=== PATIENT | male | born 1980 | race Caucasian/White ===

== ENCOUNTER 2016-08-24 11:34 | Inpatient (IN) | payer BC, OTHER ==
[2016-08-24] MEDS ORDERED: NS 1,000 ML IV ONE (12:00)
[2016-08-24 12:06] LABS: % IMMATURE GRANULYOCYTES 0.6 % (0.0-1.1); ABSOLUTE IMMATURE GRANULOCYTES 0.05 10^3/uL (0.00-0.10); ADD DIFF? NO; ADD MORPH? NO; ADD SCAN? NO; ATYPICAL LYMPHOCYTE FLAG 50 (0-99); FRAGMENT RBC FLAG 0 (0-99); HEMATOCRIT 38.7 % (40.0-51.0); HEMOGLOBIN 13.2 g/dL (13.7-17.5); LEFT SHIFT FLG 0 (0-99); LIPEMIA HEMOLYSIS FLAG 90 (0-99); MEAN CELL HEMOGLOBIN 26.9 pg (27.9-34.1); MEAN CELL HEMOGLOBIN CONCENTR. 34.1 g/dL (32.4-36.7); MEAN CELL VOLUME 78.8 fL (81.5-99.8); MEAN PLATELET VOLUME 9.2 fL (8.7-11.7); PLATELET CLUMPS FLAG 0 (0-99); PLATELET COUNT 399 10^3/uL (150-400); RED BLOOD CELL COUNT 4.91 10^6/uL (4.40-6.38); RED CELL DISTRIBUTION WIDTH 13.8 % (11.5-15.2)
[2016-08-24 12:49] LABS: ANION GAP 14 mEq/L (8-16); CALCIUM 9.9 mg/dL (8.5-10.4); CARBON DIOXIDE 24 mEq/l (22-31); CHLORIDE 104 mEq/L (97-110); CREATININE 0.9 mg/dL (0.7-1.3); GLOMERULAR FILTRATION RATE > 60; GLUCOSE 108 mg/dL (70-100); POTASSIUM 4.4 mEq/L (3.5-5.2); SODIUM 142 mEq/L (134-144)
--- NOTE | 2016-08-24 13:28 | EDPHY ---
H & P Time Seen by Provider: 08/24/16 12:34 HPI/ROS: CHIEF COMPLAINT: Bloody stools HISTORY OF PRESENT ILLNESS: 35-year-old male with a history of ulcerative colitis presents with bloody stools. Onset of bloody stools 5 days ago, associated with abdominal cramping. He was placed on prednisone 40 mg daily 2 days ago and has taken 3 doses of prednisone. Despite prednisone, he continues to have 18-20 bloody stools daily. No associated fever or vomiting. He was diagnosed with ulcerative colitis in March. He has had 4 ulcerative colitis flare ups since then. Most recently he was treated with Remicade IV on 2016. 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 Guevara Smoking Status: Never smoked Physical Exam: General Appearance: Alert, pleasant Eyes: Pupils equal and round, no conjunctival pallor or injection ENT, Mouth: Mucous membranes moist Neck: Normal inspection Respiratory: Lungs are clear to auscultation Cardiovascular: Regular rate and rhythm Gastrointestinal: Abdomen is soft and nontender Neurological: A&O, nonfocal, normal gait Skin: Warm and dry, no rash Extremities: Nontender, no pedal edema Psychiatric: Mood and affect normal Constitutional: Initial Vital Signs Temperature (C) 36.5 C 08/24/16 11:40 Heart Rate 79 08/24/16 11:40 Respiratory Rate 17 08/24/16 11:40 Blood Pressure 140/90 H 08/24/16 11:40 O2 Sat (%) 93 08/24/16 11:40 O2 Delivery Mode Room Air Allergies/Adverse Reactions: No Known Allergies Allergy (Unverified 08/24/16 11:39) Home Medications: Medication Instructions Recorded Prednisone 08/24/16 Remicade Inj 100 mg (*) 08/24/16 Medical Decision Making ED Course/Re-evaluation: This patient presents with multiple episodes of bloody stools. IV saline 1 L given. There is no evidence intra-abdominal infection/abscess. I do not feel that CT scanning is indicated at this point. 1:30 p.m.-I consulted with Dr. Saeid Daly, who suggests IV steroids and admission. Solu-Medrol 125 mg IV given. Patient was informed of this plan and he concurs. The hospitalist service was consulted for admission. Differential Diagnosis: Differential diagnosis includes though it is not limited to appendicitis, cholecystitis, diverticulitis, pyelonephritis, bowel perforation, small bowel obstruction. - Data Points Laboratory Results: Laboratory Results 08/24/16 11:55 08/24/16 11:55 08/24/16 08/24/16 11:55 11:55 WBC 8.83 10^3/uL 10^3/uL (3.80-9.50) RBC 4.91 10^6/uL 10^6/uL (4.40-6.38) Hgb 13.2 g/dL L g/dL (13.7-17.5) Hct 38.7 % L % (40.0-51.0) MCV 78.8 fL L fL (81.5-99.8) MCH 26.9 pg L pg (27.9-34.1) MCHC 34.1 g/dL g/dL (32.4-36.7) RDW 13.8 % % (11.5-15.2) Plt Count 399 10^3/uL 10^3/uL (150-400) MPV 9.2 fL fL (8.7-11.7) Neut % (Auto) 80.5 % H % (39.3-74.2) Lymph % (Auto) 16.2 % % (15.0-45.0) Avery % (Auto) 2.6 % L % (4.5-13.0) Eos % (Auto) 0.0 % L % (0.6-7.6) Baso % (Auto) 0.1 % L % (0.3-1.7) Nucleat RBC Rel Count 0.0 % % (0.0-0.2) Absolute Neuts (auto) 7.11 10^3/uL H 10^3/uL (1.70-6.50) Absolute Lymphs (auto) 1.43 10^3/uL 10^3/uL (1.00-3.00) Absolute Monos (auto) 0.23 10^3/uL L 10^3/uL (0.30-0.80) Absolute Eos (auto) 0.00 10^3/uL L 10^3/uL (0.03-0.40) Absolute Basos (auto) 0.01 10^3/uL L 10^3/uL (0.02-0.10) Absolute Nucleated RBC 0.00 10^3/uL 10^3/uL (0-0.01) Immature Gran % 0.6 % % (0.0-1.1) Immature Gran # 0.05 10^3/uL 10^3/uL (0.00-0.10) Sodium 142 mEq/L mEq/L (134-144) Potassium 4.4 mEq/L mEq/L (3.5-5.2) Chloride 104 mEq/L mEq/L (97-110) Carbon Dioxide 24 mEq/l mEq/l (22-31) Anion Gap 14 mEq/L mEq/L (8-16) BUN 22 mg/dL mg/dL (7-23) Creatinine 0.9 mg/dL mg/dL (0.7-1.3) Estimated GFR > 60 Glucose 108 mg/dL H mg/dL (70-100) Calcium 9.9 mg/dL mg/dL (8.5-10.4) Medications Given: Discontinued Medications Sodium Chloride (Ns) 1,000 mls @ 0 mls/hr IV ONCE ONE PRN Reason: Wide Open Stop: 08/24/16 12:01 Last Admin: 08/24/16 12:02 Dose: 1,000 mls Departure - Departure Disposition: [facility] Inpatient Acute Clinical Impression: Ulcerative colitis Qualifiers: Ulcerative colitis location: unspecified ulcerative colitis location Digestive disease complication type: with rectal bleeding Qualified Code(s): K51.911 - Ulcerative colitis, unspecified with rectal bleeding Condition: Good
[2016-08-24] MEDS ORDERED: methylPREDNISolone SOD SUCC 125 MG/2 ML VIAL IVP ONE (13:34)
[2016-08-24] MEDS ORDERED: TEMAZEPAM 15 MG CAP PO PRN (14:11)
[2016-08-24] MEDS ORDERED: ACETAMINOPHEN 325 MG TAB PO PRN (14:11)
[2016-08-24] MEDS ORDERED: ONDANSETRON 4 MG/2 ML VIAL IVP PRN (14:11)
[2016-08-24] MEDS ORDERED: ONDANSETRON DISINTEGRATING 4 MG TAB PO PRN (14:11)
[2016-08-24] MEDS ORDERED: NS 1,000 ML IV SCH (14:15)
[2016-08-24] MEDS ORDERED: methylPREDNISolone SOD SUCC 125 MG/2 ML VIAL IVP SCH (18:00)
--- NOTE | 2016-08-24 18:17 | PDGENHP ---
History and Physical History and Physical: HISTORY AND PHYSICAL CC:Frequent bloody stools with history of Crohn's disease HISTORY: This patient is here with his 1st admission [facility] [place]. Comes in with worsening symptoms of ulcerative colitis. Patient was diagnosed with ulcerative colitis last year. Since then he has been on a number of treatments including several rounds of steroids, some anti- inflammatories and has now been using Remicade. At this time he comes in having fairly dramatic increase in symptoms over the last few days after worsening symptoms for a couple weeks prior to that. At this point he is having as many as 20 bloody stools per day with mild to moderate discomfort, no fevers, no nausea or vomiting. He has no symptoms of the eyes oral mucosa, joints, or skin. He has been compliant with his Remicade injections. He did start taking some prednisone orally at 40 mg dosing a couple days ago. Symptoms of got worse despite all this. ROS: A comprehensive 10 system review revealed no other significant findings PAST MEDICAL HISTORY: No other significant medical issues FAMILY MEDICAL HISTORY: Colon cancer in a grandparent but no inflammatory bowel disease or other autoimmune disease SOCIAL HISTORY: he has [place] but is and living with his and children here. 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 MEDICATIONS: The patients list has been reconciled by our clinical pharmacist in the EMR. I have reviewed the list and ordered appropriate medicines. 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 Daly from Gastroenterology has been consulted - he may need reassessment of his biologic therapy in the outpatient setting I have reviewed the patient's case in detail with Dr. Elisa mora
--- NOTE | 2016-08-24 19:55 | GCON ---
[f rep st] CONSULTATION GASTROENTEROLOGY INPATIENT CONSULTATION DATE OF CONSULTATION: 08/24/2016 REASON FOR CONSULTATION: I was kindly requested by Dr. Ayesha Mahmood to see the patient in consultation for a chief complaint of ulcerative colitis. HISTORY OF PRESENT ILLNESS: He is a 35-year-old white male with a history of the above. Since moving here recently from [place], he has been followed by my partner, Dr. Joann Guevara. His last office visit was June 30. Prior to leaving [place], he received loading doses of Remicade. These helped greatly. He had his first 8-week maintenance dose of Remicade on August 02. Shortly after the above, he began to have an increase in number of bowel movements, with blood. This has gotten progressively worse, with up to 20 bloody bowel movements per day over the last several days. Because of this, he presented to the Emergency Department, and was admitted to the hospital. In the past, prednisone helped. When in [place], he did require 5 months of prednisone. He has tried Lialda, which caused headaches. He has tried balsalazide, with no benefit. He has not tried Imodium for the above. PAST MEDICAL HISTORY: 1. As above. 2. Otherwise, noncontributory. MEDICATIONS: Outpatient medications include the above. Inpatient medications includes Zofran as needed and normal saline. He has also received 1 dose of Solu-Medrol 125 mg IV x1. ALLERGIES: No known drug allergies. SOCIAL HISTORY: He denies smoking. FAMILY HISTORY: Negative for similar ulcerative colitis. REVIEW OF SYSTEMS: Positive pertinent review of systems as per my HPI. Otherwise, a complete review of systems is negative. PHYSICAL EXAM: CONSTITUTIONAL: Reveals a nontoxic-appearing, pleasant gentleman. SKIN: Warm, dry. HEENT: Eyes: Pupils equal, round, and reactive to light accommodation. Ear, nose, mouth and throat: Oropharynx without masses , moist mucosa. CARDIOVASCULAR: Normal S2, normal PMI. RESPIRATORY: Clear to auscultation and percussion anteriorly. GASTROINTESTINAL: Soft, nontender. NEUROLOGIC: Grossly nonfocal with cranial nerves grossly intact. PSYCHIATRIC : Orientation, insight appropriate. MUSCULOSKELETAL: Strength grossly normal throughout, normal sensation. LABORATORIES: Include hematocrit of 38.7%, platelet count 399,000. Normal basic metabolic panel. Normal outpatient liver function tests. Outpatient ESR 17. ASSESSMENT: Significant flare of his known ulcerative colitis. He had an initial very good response to Remicade, but then less of a response with his first maintenance dose 3 weeks ago. He might be failing Remicade, or may have developed antibody. However, it is certainly possible that Remicade will continue to be helpful for him, but possibly he just needs a higher dose. In terms of long-term maintenance, suspect with his significant flares, including now on Remicade, and past long-term use of prednisone, that he will need additional treatment, such as with an immunomodulator. PLAN: 1. IV Solu-Medrol 30 mg q.12. Suspect this will help greatly. Once doing better, we will transition him to prednisone. 2. We will begin azathioprine 100 mg daily. 3. Will check a C diff toxin, but suspect will be negative. 4. Imodium as needed for diarrhea, or preventively. 5. As an outpatient, when he is due for his next Remicade in early September, would recommend 7.5 mg/kg infusion. 6. Will advance his diet. Thank you for allowing me to help in the management of patient. /[id number]/MODL MTDD
[2016-08-24] MEDS: azaTHIOprine 50 MG TAB PO SCH (20:59)
[2016-08-24] MEDS: methylPREDNISolone SOD SUCC 40 MG/ML VIAL IVP SCH (20:59)
[2016-08-25] MEDS: D5W 1/2 NS W/ 20 KCl/L 1,000 ML IV SCH (05:15)
[2016-08-25 05:48] LABS: % IMMATURE GRANULYOCYTES 0.2 % (0.0-1.1); ABSOLUTE IMMATURE GRANULOCYTES 0.02 10^3/uL (0.00-0.10); ADD DIFF? NO; ADD MORPH? NO; ADD SCAN? NO; ATYPICAL LYMPHOCYTE FLAG 50 (0-99); FRAGMENT RBC FLAG 0 (0-99); HEMATOCRIT 33.7 % (40.0-51.0); HEMOGLOBIN 11.4 g/dL (13.7-17.5); LEFT SHIFT FLG 0 (0-99); LIPEMIA HEMOLYSIS FLAG 90 (0-99); MEAN CELL HEMOGLOBIN 26.7 pg (27.9-34.1); MEAN CELL HEMOGLOBIN CONCENTR. 33.8 g/dL (32.4-36.7); MEAN CELL VOLUME 78.9 fL (81.5-99.8); MEAN PLATELET VOLUME 9.2 fL (8.7-11.7); PLATELET CLUMPS FLAG 0 (0-99); PLATELET COUNT 358 10^3/uL (150-400); RED BLOOD CELL COUNT 4.27 10^6/uL (4.40-6.38); RED CELL DISTRIBUTION WIDTH 13.7 % (11.5-15.2)
[2016-08-25 06:17] LABS: ANION GAP 12 mEq/L (8-16); CALCIUM 8.9 mg/dL (8.5-10.4); CARBON DIOXIDE 23 mEq/l (22-31); CHLORIDE 107 mEq/L (97-110); CREATININE 0.8 mg/dL (0.7-1.3); GLOMERULAR FILTRATION RATE > 60; GLUCOSE 121 mg/dL (70-100); POTASSIUM 4.2 mEq/L (3.5-5.2); SODIUM 142 mEq/L (134-144)
[2016-08-25] MEDS: methylPREDNISolone SOD SUCC 40 MG/ML VIAL IVP SCH ×2 (08:39→21:39)
[2016-08-25] MEDS: azaTHIOprine 50 MG TAB PO SCH (08:39)
--- NOTE | 2016-08-25 14:13 | SOAPPROG ---
SOAP Progress Note Assessment/Plan: Assessment/Plan: UC flare. Still with some activity, with 8 b.m.s/24 hours. Suspect will improve, with more time on IV solumedrol. - continue IV 'roids for today - anthony, CPM 08/25/16 14:12 Subjective: cc: UC flare 8 b.m.s/last 24 hours, with urgency, tenesmus, mucous, blood. Tolerating p.o. Objective: Vital Signs Temp Pulse Resp BP Pulse Ox 36.6 C 75 16 129/70 H 93 08/25/16 11:58 08/25/16 11:58 08/25/16 11:58 08/25/16 11:58 08/25/16 11:58 Laboratory Results 08/25/16 05:30 08/25/16 05:30 08/24/16 08/25/16 08/26/16 05:59 05:59 05:59 Intake Total 1250 Balance 1250 c. diff pending. Physical Exam - Physical Exam General Appearance: WD/WN, alert, no apparent distress EENT: PERRL/EOMI, normal ENT inspection, pharynx normal, TMs normal Neck: non-tender, full range of motion, supple, normal inspection Respiratory: chest non-tender, lungs clear, normal breath sounds Cardiac/Chest: normal peripheral pulses, regular rate, rhythm Peripheral Pulses: 2+: carotid (R), carotid (L), femoral (R), femoral (L), dorsalis-pedis (R), dorsalis-pedis (L) Abdomen: normal bowel sounds, non-tender, soft Male Genitalia: deferred Rectal: deferred Back: Normal inspection Skin: normal color, warm/dry Lymphatic: no adenopathy Extremities: normal range of motion, non-tender, normal inspection, normal capillary refill Neuro/Psych: no motor/sensory deficits, alert, normal mood/affect, oriented x 3 ICD10 Worksheet Patient Problems: Problems Problem Status Onset Ulcerative colitis Acute
--- NOTE | 2016-08-25 17:12 | HOSPPROG ---
Hospitalist Progress Note Assessment/Plan: assessment: 35-year-old male presents with acute ulcerative colitis flare Plan: 1. Ulcerative colitis flare. Acute, evidenced by frequent bloody bowel movements, despite outpatient Remicade - Hgb stable 11.4 - gastroenterology consultation appreciated - the frequency of bowel movements is slowing with the IV Solu-Medrol, the consistency remains bloody - continue additional 24 hours of IV Solu-Medrol, then consider adjusting to oral steroids tomorrow if the consistency begins to be less bloody and frequency remains stable - initiated on azathioprine, as-needed Imodium, the patient will be continued on outpatient Remicade - advance diet as tolerates, low consistency Diet. Low residual Prophylaxis. Low risk, SCDs Code. Full Disposition. Anticipated discharge is 08/26 versus 08/27, pending clinical improvement of above, and safe transition to oral steroids. Subjective: Patient reports reduction frequency of bowel movements, remain blood Objective: Vital Signs Temp Pulse Resp BP Pulse Ox 36.8 C 88 16 127/67 H 93 08/25/16 15:47 08/25/16 15:47 08/25/16 15:47 08/25/16 15:47 08/25/16 15:47 Laboratory Results 08/25/16 05:30 08/25/16 05:30 08/24/16 08/25/16 08/26/16 05:59 05:59 05:59 Intake Total 1250 Balance 1250 - Pending Discharge Pending Discharge Within 48 Hours: Yes Pending Discharge Date: 08/27/16 Pending Discharge Time: 11:00 - Physical Exam Constitutional: no apparent distress, appears nourished, not in pain Cardiovascular: regular rate and rhythym, no murmur, rub, or gallop Respiratory: no respiratory distress, no rales or rhonchi, clear to auscultation Gastrointestinal: normoactive bowel sounds, no palpable masses, tenderness ( very mild to deep palpation), No guarding, No distension Neurologic: AAOx3 Psychiatric: interacting appropriately, not anxious, not encephalopathic, thought process linear ICD10 Worksheet Patient Problems: Problems Problem Status Onset Ulcerative colitis Acute
[2016-08-25] MEDS: LOPERAMIDE HCL 2 MG CAP PO PRN ×2 (21:39→22:52)
[2016-08-26 05:23] LABS: HEMATOCRIT 34.9 % (40.0-51.0); HEMOGLOBIN 11.8 g/dL (13.7-17.5)
[2016-08-26] MEDS: methylPREDNISolone SOD SUCC 40 MG/ML VIAL IVP SCH ×2 (07:52→20:43)
[2016-08-26] MEDS: azaTHIOprine 50 MG TAB PO SCH (07:53)
[2016-08-26] MEDS: LOPERAMIDE HCL 2 MG CAP PO PRN (07:53)
--- NOTE | 2016-08-26 09:28 | SOAPPROG ---
SOAP Progress Note Assessment/Plan: Assessment/Plan: UC flare. Still with about the same activity as yesterday, with 6 b.m.s/24 hours. Much of his description suggests significant activity in the rectum/ left colon (tenesmus, small amounts, blood, etc.). - continue IV 'roids for today - continue azathioprine - unprepped flex sig later, to better assess extent of disease, severity, need for enemas/suppositories, etc. - I will also research whether we can give him a remicade dose here, 24 days after his last. 08/26/16 09:25 Subjective: cc: UC flare Still with bloody bms, about six/16 hours, one larger in volume and loose. Imodium helped, but needed to take two. No rigors, chills, vomiting. Objective: Vital Signs Temp Pulse Resp BP Pulse Ox 36.4 C 71 17 126/88 H 94 08/26/16 08:00 08/26/16 08:00 08/26/16 08:00 08/26/16 08:00 08/26/16 08:00 Laboratory Results 08/26/16 04:37 08/25/16 05:30 08/25/16 08/26/16 08/27/16 05:59 05:59 05:59 Intake Total 1250 750 Balance 1250 750 c. diff negative Physical Exam - Physical Exam General Appearance: WD/WN, alert, no apparent distress EENT: PERRL/EOMI, normal ENT inspection, pharynx normal, TMs normal Neck: non-tender, full range of motion, supple, normal inspection Respiratory: chest non-tender, lungs clear, normal breath sounds Cardiac/Chest: normal peripheral pulses, regular rate, rhythm Peripheral Pulses: 2+: carotid (R), carotid (L), femoral (R), femoral (L), dorsalis-pedis (R), dorsalis-pedis (L) Abdomen: normal bowel sounds, non-tender, soft Male Genitalia: deferred Rectal: deferred Back: Normal inspection Skin: normal color, warm/dry Lymphatic: no adenopathy Extremities: normal range of motion, non-tender, normal inspection, normal capillary refill Neuro/Psych: no motor/sensory deficits, alert, normal mood/affect, oriented x 3 ICD10 Worksheet Patient Problems: Problems Problem Status Onset Ulcerative colitis Acute
--- NOTE | 2016-08-26 10:53 | HOSPPROG ---
Hospitalist Progress Note Assessment/Plan: # UC flare - cont IV steroids, started on imuran; was getting remicade as outpatient - will discuss with Dr Daly # anemia - stable ## chart reviewed high risk with UC flare not really improving Subjective: BMs decreasing in frequency but now about 18 in the last day Objective: Vital Signs Temp Pulse Resp BP Pulse Ox 36.4 C 71 17 126/88 H 94 08/26/16 08:00 08/26/16 08:00 08/26/16 08:00 08/26/16 08:00 08/26/16 08:00 Laboratory Results 08/26/16 04:37 08/25/16 05:30 08/25/16 08/26/16 08/27/16 05:59 05:59 05:59 Intake Total 1250 750 Balance 1250 750 - Physical Exam Constitutional: no apparent distress Cardiovascular: regular rate and rhythym, no murmur, rub, or gallop, systolic murmur Respiratory: no respiratory distress, no rales or rhonchi, clear to auscultation Gastrointestinal: no palpable masses, tenderness (mild, RLQ), other ( hyperactive BS), No guarding, No rebound ICD10 Worksheet Patient Problems: Problems Problem Status Onset Ulcerative colitis Acute
[2016-08-26] MEDS ORDERED: fentaNYL 100 MCG/2 ML INJ ONE ×2 (11:13→11:51)
[2016-08-26] MEDS ORDERED: MIDAZOLAM 2 MG/2 ML VIAL ONE (11:13)
[2016-08-26] MEDS ORDERED: LORazepam 2 MG/ML INJ IVP PRN (12:26)
[2016-08-26] MEDS ORDERED: ACETAMINOPHEN 325 MG TAB PO SCH (13:00)
--- NOTE | 2016-08-26 13:01 | GPN ---
[f rep st] PROCEDURE NOTE DATE OF PROCEDURE: 08/26/2016 PROCEDURE: Unprepped colonoscopy with biopsy. INDICATIONS AND PREPROCEDURE DIAGNOSES: Flare of ulcerative colitis, slow to respond to treatment; unprepped colonoscopy now, to ensure no other cause of his symptoms, and to better quantify the severity and the length of his ulcerative colitis. POSTPROCEDURE DIAGNOSIS: Severe ulcerative colitis (as below). PREMEDICATION: Fentanyl 150 mcg IV, Versed 6 mg IV. COMPLICATIONS: None. FINDINGS: After informed consent was obtained, the patient was placed in the left lateral decubitus position. Video adult colonoscope was placed in the rectum and advanced. Of note, this was an unprepped procedure. I was able to get to 60 cm, however, past the splenic flexure. Then, formed stool was seen, so did not try to go further (especially as now the clinical answer was met). Upon slow withdrawal, very severe ulcerative colitis was seen, throughout the extent of the exam, with erythema, friability, granularity, exudate. Biopsies were performed. IMPRESSION: Very severe active ulcerative colitis. PLAN: 1. Biopsies pending, to rule out other causes, such as viral, etc. (doubt). 2. Will increase his Solu-Medrol to 40 mg IV piggyback q.12. 3. Will give him an additional dose of Remicade 5 mg/kg IV infusion. His last infusion was 24 days ago, and was just 5 mg/kg. Therefore, this will give him a larger dose, which I suspect he needs, and hopefully it will benefit him as did loading doses of Remicade when he was in [place]. 4. Will let him eat. 5. Will decrease his IV fluids somewhat. Once doing better, this can be buff capped. 6. Of note, he is supposed to fly to [place] next Monday. With the above severity, this might not be possible. I have given his , Alysha, a letter stating this. 7. Continue azathioprine 100 mg daily. Thank you for allowing me to help in the management of this patient. /[id number]/MODL MTDD
[2016-08-26] MEDS: D5W 1/2 NS W/ 20 KCl/L 1,000 ML IV SCH (13:28)
[2016-08-27 05:37] LABS: HEMATOCRIT 34.6 % (40.0-51.0); HEMOGLOBIN 11.7 g/dL (13.7-17.5)
[2016-08-27] MEDS: azaTHIOprine 50 MG TAB PO SCH (08:09)
[2016-08-27] MEDS: methylPREDNISolone SOD SUCC 40 MG/ML VIAL IVP SCH ×2 (08:10→21:35)
--- NOTE | 2016-08-27 11:24 | SOAPPROG ---
SOAP Progress Note Assessment/Plan: Assessment: Plan: 08/27/16 11:21 A/P 1. Ulcerative colitis- gipson colitis with diarrhea and blood in stools. Received increased dose of Remicade and on Solumedrol BID. Clinically improving? Will follow. Need to monitor LFTs due to imuran. Will also check ESR and CRP as surrogate marker for disease activity. Continue present medications. Subjective: cc: Follow up on ulcerative colitis flare Improving? Has not had a recent BM since 530am (over 5 hours). Denies any abdominal pain. Objective: Vital Signs Temp Pulse Resp BP Pulse Ox 36.6 C 68 16 126/86 H 93 08/27/16 08:00 08/27/16 08:00 08/27/16 08:00 08/27/16 08:00 08/27/16 08:00 Laboratory Results 08/27/16 04:41 08/25/16 05:30 08/26/16 08/27/16 08/28/16 05:59 05:59 05:59 Intake Total 750 800 Balance 750 800 Physical Exam - Physical Exam General Appearance: alert, no apparent distress EENT: No scleral icterus (R), No scleral icterus (L) Respiratory: lungs clear, normal breath sounds, No crackles, No rales, No rhonchi Cardiac/Chest: regular rate, rhythm, No bradycardia, No tachycardia, No diastolic murmur, No systolic murmur Abdomen: normal bowel sounds, non-tender, soft, No guarding, No rebound Skin: normal color, warm/dry Extremities: non-tender, normal inspection Neuro/Psych: normal mood/affect, oriented x 3, 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
--- NOTE | 2016-08-27 11:51 | HOSPPROG ---
Hospitalist Progress Note Assessment/Plan: # UC flare - s/p flex-sig yesterday with severe disease - solu-medrol increased yesterday - remicade given yesterday # anemia - stable Subjective: no BM for 6 hours Objective: Vital Signs Temp Pulse Resp BP Pulse Ox 36.6 C 68 16 126/86 H 93 08/27/16 08:00 08/27/16 08:00 08/27/16 08:00 08/27/16 08:00 08/27/16 08:00 Laboratory Results 08/27/16 04:41 08/25/16 05:30 08/26/16 08/27/16 08/28/16 05:59 05:59 05:59 Intake Total 750 800 Balance 750 800 op note reviewed - Physical Exam Constitutional: no apparent distress, appears nourished Cardiovascular: regular rate and rhythym, no murmur, rub, or gallop, systolic murmur Respiratory: no respiratory distress, no rales or rhonchi, clear to auscultation Gastrointestinal: normoactive bowel sounds, soft, non-tender abdomen, no palpable masses ICD10 Worksheet Patient Problems: Problems Problem Status Onset Ulcerative colitis Acute
[2016-08-27] MEDS: LOPERAMIDE HCL 2 MG CAP PO PRN ×2 (14:12→21:36)
[2016-08-28 04:55] LABS: HEMATOCRIT 36.6 % (40.0-51.0); HEMOGLOBIN 12.5 g/dL (13.7-17.5)
[2016-08-28] MEDS: azaTHIOprine 50 MG TAB PO SCH (07:54)
[2016-08-28] MEDS: methylPREDNISolone SOD SUCC 40 MG/ML VIAL IVP SCH ×2 (07:54→20:57)
--- NOTE | 2016-08-28 09:50 | HOSPPROG ---
Hospitalist Progress Note Assessment/Plan: # UC flare - s/p flex-sig with severe disease - solu-medrol increased - remicade given 08/26 - slow improvement # anemia - stable Subjective: 6 BMs yesterday Objective: Vital Signs Temp Pulse Resp BP Pulse Ox 36.6 C 90 16 130/77 H 93 08/28/16 07:23 08/28/16 07:23 08/28/16 07:23 08/28/16 07:23 08/28/16 07:23 Laboratory Results 08/28/16 04:35 08/25/16 05:30 08/27/16 08/28/16 08/29/16 05:59 05:59 05:59 Intake Total 800 200 Balance 800 200 chart reviewed - Physical Exam Constitutional: no apparent distress, appears nourished Cardiovascular: regular rate and rhythym, no murmur, rub, or gallop Respiratory: no respiratory distress, no rales or rhonchi, clear to auscultation Gastrointestinal: soft, non-tender abdomen, no palpable masses, other ( hyperactive BS) ICD10 Worksheet Patient Problems: Problems Problem Status Onset Ulcerative colitis Acute
--- NOTE | 2016-08-28 17:24 | SOAPPROG ---
LIZZY Progress Note Assessment/Plan: Assessment: Plan: 08/27/16 11:21 A/P 1. Ulcerative colitis- gipson colitis with diarrhea and blood in stools. Received increased dose of Remicade and on Solumedrol BID. Clinically improving? Will follow. Need to monitor LFTs due to imuran. Will also check ESR and CRP as surrogate marker for disease activity. Continue present medications. 08/28/16 17:21 A/P 1. Ulcerative colitis- gipson colitis with diarrhea and blood in stools. Severe disease. Received increased dose of Remicade and on Solumedrol BID. Appears to be clinically improving. Tolerating diet. Will check ESR and CRP. Consider transition to oral steroids soon with IV overlap? Continue present medications. Subjective: cc: Follow up colitis 6 BMs in last 24 hours. Improving slowly. Less blood. Objective: Vital Signs Temp Pulse Resp BP Pulse Ox 36.6 C 87 16 129/76 H 92 08/28/16 15:32 08/28/16 15:32 08/28/16 15:32 08/28/16 15:32 08/28/16 15:32 Laboratory Results 08/28/16 04:35 08/25/16 05:30 08/27/16 08/28/16 08/29/16 05:59 05:59 05:59 Intake Total 800 200 Balance 800 200 Physical Exam - Physical Exam General Appearance: alert, no apparent distress, No cachetic EENT: No scleral icterus (R) Respiratory: lungs clear, normal breath sounds, No crackles, No rales, No rhonchi, No wheezing Cardiac/Chest: regular rate, rhythm, No diastolic murmur, No systolic murmur Abdomen: normal bowel sounds, non-tender, soft, No distended, No guarding, No rebound, No hernia, No hepatomegaly, No splenomegaly Skin: normal color Neuro/Psych: normal mood/affect, oriented x 3, No abnormal cerebellar tests, 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
[2016-08-28 18:21] LABS: % IMMATURE GRANULYOCYTES 0.5 % (0.0-1.1); ABSOLUTE IMMATURE GRANULOCYTES 0.04 10^3/uL (0.00-0.10); ADD DIFF? NO; ADD MORPH? NO; ADD SCAN? NO; ATYPICAL LYMPHOCYTE FLAG 50 (0-99); FRAGMENT RBC FLAG 0 (0-99); HEMATOCRIT 37.8 % (40.0-51.0); HEMOGLOBIN 12.6 g/dL (13.7-17.5); LEFT SHIFT FLG 0 (0-99); LIPEMIA HEMOLYSIS FLAG 80 (0-99); MEAN CELL HEMOGLOBIN 26.6 pg (27.9-34.1); MEAN CELL HEMOGLOBIN CONCENTR. 33.3 g/dL (32.4-36.7); MEAN CELL VOLUME 79.9 fL (81.5-99.8); MEAN PLATELET VOLUME 9.3 fL (8.7-11.7); PLATELET CLUMPS FLAG 0 (0-99); PLATELET COUNT 443 10^3/uL (150-400); RED BLOOD CELL COUNT 4.73 10^6/uL (4.40-6.38); RED CELL DISTRIBUTION WIDTH 13.4 % (11.5-15.2)
[2016-08-28 18:27] LABS: ALBUMIN 4.2 g/dL (3.5-5.0); BILIRUBIN,TOTAL 0.5 mg/dL (0.1-1.4); BILIRUBIN-CONJUGATED 0.3 mg/dL (0.0-0.5); BILIRUBIN-UNCONJUGATED 0.2 mg/dL (0.0-1.1); C-REACTIVE PROTEIN 5.1 mg/L (<10.0); TOTAL PROTEIN 7.4 g/dL (6.3-8.2)
[2016-08-28 18:53] LABS: SEDIMENTATION RATE 17 MM/HR (0-15)
[2016-08-28] MEDS: LOPERAMIDE HCL 2 MG CAP PO PRN (21:38)
[2016-08-29] MEDS: azaTHIOprine 50 MG TAB PO SCH (08:01)
[2016-08-29] MEDS: methylPREDNISolone SOD SUCC 40 MG/ML VIAL IVP SCH ×2 (08:02→21:11)
--- NOTE | 2016-08-29 09:16 | HOSPPROG ---
Hospitalist Progress Note Assessment/Plan: # UC flare - s/p flex-sig with severe disease - solu-medrol 40 iv bid - remicade given 08/26 - slow improvement - not ready for discharge - Dr Myers consulted # anemia - stable Subjective: long discussion with patient - he is very upset about now being ready for discharge; he is currently having fewer BMs (about 5) which are less bloody Objective: Vital Signs Temp Pulse Resp BP Pulse Ox 36.6 C 72 14 133/90 H 93 08/29/16 08:00 08/29/16 08:00 08/29/16 08:00 08/29/16 08:00 08/29/16 08:00 Laboratory Results 08/28/16 18:05 08/25/16 05:30 08/28/16 08/29/16 08/30/16 05:59 05:59 05:59 Intake Total 200 340 Balance 200 340 - Physical Exam Constitutional: no apparent distress, appears nourished ICD10 Worksheet Patient Problems: Problems Problem Status Onset Ulcerative colitis Acute
--- NOTE | 2016-08-29 18:26 | SOAPPROG ---
SOAP Progress Note Assessment/Plan: Assessment: 1. ALEC; Slow improvement on maximal medical management. Plan: 1. Continue IV steroids, could switch to oral Prednisone at 40 mg PO BID tomorrow am if he has a good night. 2. Projected discharge home in 2-3 days if continued improvement of symptoms. total of 30 minutes on counseling and education today(17:55-18:25) Bijan Guevara MD 08/29/16 18:28 Subjective: CC: ALEC. Interval HPI: Patient feeling better today. 3 watery BM's since early am without blood or urgency. No abdominal pain. Objective: Vital Signs Temp Pulse Resp BP Pulse Ox 36.6 C 72 14 133/90 H 93 08/29/16 08:00 08/29/16 08:00 08/29/16 08:00 08/29/16 08:00 08/29/16 08:00 Laboratory Results 08/28/16 18:05 08/25/16 05:30 08/28/16 08/29/16 08/30/16 05:59 05:59 05:59 Intake Total 200 340 Balance 200 340 Physical Exam - Physical Exam General Appearance: WD/WN, alert, anxiety Respiratory: lungs clear, normal breath sounds Cardiac/Chest: regular rate, rhythm Abdomen: normal bowel sounds, non-tender, soft Skin: normal color, warm/dry Neuro/Psych: alert, normal mood/affect, oriented x 3 ICD10 Worksheet Patient Problems: Problems Problem Status Onset Ulcerative colitis Acute
--- NOTE | 2016-08-29 19:37 | SOAPPROG ---
LIZZY Progress Note Assessment/Plan: Assessment: SEVERE ULCERATIVE COLITIS WHICH SEEMS TO BE IMPROVING / ABDOMEN IS SOFT AND MINIMALLY TENDER Plan: WILL FOLLOW WITH YOU 08/29/16 19:36 Objective: Vital Signs Temp Pulse Resp BP Pulse Ox 36.6 C 85 18 118/92 H 93 08/29/16 16:00 08/29/16 16:00 08/29/16 16:00 08/29/16 16:00 08/29/16 16:00 Laboratory Results 08/28/16 18:05 08/25/16 05:30 08/28/16 08/29/16 08/30/16 05:59 05:59 05:59 Intake Total 200 340 Balance 200 340 ICD10 Worksheet Patient Problems: Problems Problem Status Onset Ulcerative colitis Acute
[2016-08-29] MEDS: LOPERAMIDE HCL 2 MG CAP PO PRN (21:23)
[2016-08-30 05:12] LABS: % IMMATURE GRANULYOCYTES 0.8 % (0.0-1.1); ABSOLUTE IMMATURE GRANULOCYTES 0.08 10^3/uL (0.00-0.10); ADD DIFF? NO; ADD MORPH? NO; ADD SCAN? NO; ATYPICAL LYMPHOCYTE FLAG 30 (0-99); FRAGMENT RBC FLAG 0 (0-99); HEMATOCRIT 37.9 % (40.0-51.0); HEMOGLOBIN 12.5 g/dL (13.7-17.5); LEFT SHIFT FLG 0 (0-99); LIPEMIA HEMOLYSIS FLAG 80 (0-99); MEAN CELL HEMOGLOBIN 26.5 pg (27.9-34.1); MEAN CELL VOLUME 80.3 fL (81.5-99.8); MEAN PLATELET VOLUME 9.4 fL (8.7-11.7); PLATELET CLUMPS FLAG 0 (0-99); PLATELET COUNT 423 10^3/uL (150-400); RED BLOOD CELL COUNT 4.72 10^6/uL (4.40-6.38); RED CELL DISTRIBUTION WIDTH 13.5 % (11.5-15.2)
[2016-08-30 05:32] LABS: ANION GAP 12 mEq/L (8-16); CALCIUM 9.2 mg/dL (8.5-10.4); CARBON DIOXIDE 26 mEq/l (22-31); CHLORIDE 101 mEq/L (97-110); CREATININE 0.7 mg/dL (0.7-1.3); GLOMERULAR FILTRATION RATE > 60; GLUCOSE 120 mg/dL (70-100); POTASSIUM 4.7 mEq/L (3.5-5.2); SODIUM 139 mEq/L (134-144)
[2016-08-30] MEDS: azaTHIOprine 50 MG TAB PO SCH (08:14)
--- NOTE | 2016-08-30 08:59 | SOAPPROG ---
SOAP Progress Note Assessment/Plan: Assessment: 1. ALEC; improvement on maximal medical management. Plan: 1. Switch to oral Prednisone at 30 mg PO BID. 2. Projected discharge home in 1-2 days if continued improvement of symptoms. Bijan Guevara MD 08/30/16 08:56 Subjective: CC: ALEC with flare. Interval HPI: Slept well last night. One semi-formed BM this am without urgency, cramping or blood. Prior BM at 9PM yesterday. Objective: Vital Signs Temp Pulse Resp BP Pulse Ox 36.5 C 68 16 119/78 91 L 08/30/16 00:00 08/30/16 00:00 08/30/16 00:00 08/30/16 00:00 08/30/16 00:00 Laboratory Results 08/30/16 04:26 08/30/16 04:26 08/29/16 08/30/16 08/31/16 05:59 05:59 05:59 Intake Total 340 Balance 340 Physical Exam - Physical Exam General Appearance: WD/WN, alert, no apparent distress Respiratory: lungs clear, normal breath sounds Cardiac/Chest: normal peripheral pulses, regular rate, rhythm Abdomen: normal bowel sounds, non-tender, soft Neuro/Psych: alert, normal mood/affect, oriented x 3 ICD10 Worksheet Patient Problems: Problems Problem Status Onset Ulcerative colitis Acute
[2016-08-30] MEDS: predniSONE 10 MG TAB PO SCH ×2 (10:22→19:02)
[2016-08-30] MEDS: methylPREDNISolone SOD SUCC 40 MG/ML VIAL IVP SCH (11:11)
[2016-08-30] MEDS ORDERED: traZODone 50 MG TAB PO PRN (11:26)
--- NOTE | 2016-08-30 11:28 | HOSPPROG ---
Hospitalist Progress Note Assessment/Plan: 35-year-old man with severe ulcerative colitis flare. overall doing better, changed to oral steroids today. may be ready for discharge tomorrow. # UC flare - s/p flex-sig with severe disease - pred 30 bid, imuran - remicade given 08/26 - slow improvement - not ready for discharge # insomnia - Has had problems with sleep before on prednisone, trazodone added as needed; he would like prescription for sleep aide on discharge # anemia - stable Subjective: 1 BM so far today, not formed Objective: Vital Signs Temp Pulse Resp BP Pulse Ox 36.3 C 79 18 134/92 H 95 08/30/16 08:00 08/30/16 08:00 08/30/16 08:00 08/30/16 08:00 08/30/16 08:00 Laboratory Results 08/30/16 04:26 08/30/16 04:26 08/29/16 08/30/16 08/31/16 05:59 05:59 05:59 Intake Total 340 Balance 340 - Time Spent With Patient Time Spent with Patient: greater than 35 minutes Time Spent with Patient: Greater than 35 minutes spent on this patients care, greater than 50% of time spent counseling, educating, and coordinating care regarding the above mentioned plan. - Physical Exam Constitutional: no apparent distress, appears nourished Cardiovascular: regular rate and rhythym, no murmur, rub, or gallop, systolic murmur Respiratory: no respiratory distress, no rales or rhonchi, clear to auscultation Gastrointestinal: soft, non-tender abdomen, no palpable masses, other ( hyperactive BS) ICD10 Worksheet Patient Problems: Problems Problem Status Onset Ulcerative colitis Acute
--- NOTE | 2016-08-30 14:21 | SOAPPROG ---
LIZZY Progress Note Assessment/Plan: Assessment/Plan: 35 Y M c UC, 4th "flare" in 8 months since diagnosis. First hospitalization for this problem. Seen and examined with Dr. Myers. Seems to be improving. Doubt surgical intervention will be needed this stay at this point but will continue to follow. Discussed surgical options and timing in detail with patient and his . S: less pain, stools firming, no blood. O: gen: alert, nad abd: soft 08/30/16 14:20 Objective: Vital Signs Temp Pulse Resp BP Pulse Ox 36.3 C 79 18 134/92 H 95 08/30/16 08:00 08/30/16 08:00 08/30/16 08:00 08/30/16 08:00 08/30/16 08:00 Laboratory Results 08/30/16 04:26 08/30/16 04:26 08/29/16 08/30/16 08/31/16 05:59 05:59 05:59 Intake Total 340 Balance 340 ICD10 Worksheet Patient Problems: Problems Problem Status Onset Ulcerative colitis Acute
[2016-08-30] MEDS: LOPERAMIDE HCL 2 MG CAP PO PRN (22:51)
[2016-08-30 22:58] VITALS: RESP 18
[2016-08-31] MEDS: predniSONE 10 MG TAB PO SCH (07:54)
[2016-08-31] MEDS: azaTHIOprine 50 MG TAB PO SCH (07:54)
[2016-08-31 08:20] VITALS: BP 113/81; PULSE 75; TEMP 98; O2SAT 96
--- NOTE | 2016-08-31 10:04 | SOAPPROG ---
LIZZY Progress Note Assessment/Plan: Assessment/Plan: 35 Y M c UC, 4th "flare" in 8 months since diagnosis. First hospitalization for this problem. Improving on steroids. Urgent surgery highly unlikely at this point. Discussed elective options. Discussed various pharmaceutical options for insomnia on prednisone. Melatonin seems to work for him and is mild. Would suggest this if it works. Also, long discussion regarding concept of hospitalists and consultants-- patient from [place] and new to [place] in last 3 months. He's trying to learn how to navigate the medical system. 's father is a retired surgeon (cardiac?). S: about 4 nonbloody soft stools yesterday. less pain. oral prednisone making him feel a little hyper O: gen: alert, nad abd: soft 08/31/16 10:01 Objective: Vital Signs Temp Pulse Resp BP Pulse Ox 36.7 C 75 18 113/81 H 96 08/31/16 08:00 08/31/16 08:00 08/31/16 08:00 08/31/16 08:00 08/31/16 08:00 Laboratory Results 08/30/16 04:26 08/30/16 04:26 ICD10 Worksheet Patient Problems: Problems Problem Status Onset Ulcerative colitis Acute
--- NOTE | 2016-08-31 11:07 | SOAPPROG ---
SOAP Progress Note Assessment/Plan: Assessment: 1. ALEC; improved. Plan: 1. D/C home today. 2. Prednisone at 30 mg PO BID until sees Dr Daly as an outpatient next week. Bijan Guevara MD 08/31/16 11:05 Subjective: CC: ALEC with flare. Interval HPI: Doing well with two formed BM today without abdominal pain. Objective: Vital Signs Temp Pulse Resp BP Pulse Ox 36.7 C 75 18 113/81 H 96 08/31/16 08:00 08/31/16 08:00 08/31/16 08:00 08/31/16 08:00 08/31/16 08:00 Laboratory Results 08/30/16 04:26 08/30/16 04:26 Physical Exam - Physical Exam General Appearance: WD/WN, alert, no apparent distress Respiratory: lungs clear, normal breath sounds Cardiac/Chest: regular rate, rhythm Abdomen: normal bowel sounds, non-tender, soft Skin: normal color Neuro/Psych: normal mood/affect, oriented x 3 ICD10 Worksheet Patient Problems: Problems Problem Status Onset Ulcerative colitis Acute
--- NOTE | 2016-08-31 11:27 | HOSPPROG ---
Hospitalist Progress Note Assessment/Plan: 35-year-old man with severe ulcerative colitis flare. overall doing better, changed to oral steroids today. may be ready for discharge tomorrow. # UC flare - s/p flex-sig with severe disease - pred 30 bid, imuran - remicade given 08/26 - slow improvement - not ready for discharge # insomnia - Has had problems with sleep before on prednisone, trazodone added as needed; he would like prescription for sleep aide on discharge # anemia - stable home today > 30 minutes Subjective: ready for dc Objective: Vital Signs Temp Pulse Resp BP Pulse Ox 36.7 C 75 18 113/81 H 96 08/31/16 08:00 08/31/16 08:00 08/31/16 08:00 08/31/16 08:00 08/31/16 08:00 Laboratory Results 08/30/16 04:26 08/30/16 04:26 - Physical Exam Constitutional: no apparent distress, appears nourished Eyes: PERRL, anicteric sclera Ears, Nose, Mouth, Throat: moist mucous membranes, hearing normal Cardiovascular: regular rate and rhythym, no murmur, rub, or gallop Respiratory: no respiratory distress, no rales or rhonchi Gastrointestinal: normoactive bowel sounds, soft, non-tender abdomen, guarding, rebound Genitourinary: No harris in urethra Skin: warm, normal color Musculoskeletal: full muscle strength, no muscle tenderness Neurologic: AAOx3, sensation intact bilaterally Psychiatric: interacting appropriately ICD10 Worksheet Patient Problems: Problems Problem Status Onset Ulcerative colitis Acute
--- NOTE | 2016-08-31 11:57 | GDS ---
[f rep st] DISCHARGE SUMMARY DISCHARGE DIAGNOSES: 1. Ulcerative colitis with severe flare, now improving. 2. Insomnia secondary to steroids. 3. Anemia. HISTORY: Please see admission history and physical by Dr. Thang German. The patient presented with tenesmus and multiple bloody bowel movements. He underwent colonoscopy showing severe ulcerative co litis, biopsy showing chronic active colitis with crypt abscesses consistent with inflammatory bowel disease. The patient was started on IV steroids, given a dose of Remicade and azathioprine was added. At the time of discharge, the patient is feeling well. He was C difficile negative. He has no fever. Hi s abdominal pain is well controlled. He is discharged on prednisone 30 mg b.i.d., azathioprine 100 daily. For other medications, please see the electronic health record. He has outpatient followup with Dr. Saeid Daly. /[id number]/MODL
== END 2016-08-31 12:43 | disposition home or self-care (01) | DRG 387 ==
LOC: F3E 14:47
PROVIDERS: ADMIT Internal Medicine; ATTEND Internal Medicine
PROC: 0DBE8ZX Excision of Large Intestine, Via Natural or Artificial Opening Endoscopic, Diagnostic (ICD-10-PCS; principal; 2016-08-26 11:30)
DX: K51.911 Ulcerative colitis, unspecified with rectal bleeding (principal); G47.09 Other insomnia; T38.0X5A Adverse effect of glucocorticoids and synthetic analogues, initial encounter; D50.0 Iron deficiency anemia secondary to blood loss (chronic)
CPT/HCPCS: 96374; J1200; J1745; J2250; J3010; J7500

== ENCOUNTER 2016-10-05 00:07 | Emergency (ER) | payer BC ==
[2016-10-05 00:16] VITALS: RESP 16
[2016-10-05 02:18] LABS: COLOR YELLOW; LEUKOCYTE ESTERASE,URINE TRACE (NEGATIVE); NITRITE,URINE NEGATIVE (NEGATIVE)
--- NOTE | 2016-10-05 03:05 | EDPHY ---
H & P Stated Complaint: pt c/o left testicular pain x4 days, pcp told him to come here for u/s Time Seen by Provider: 10/05/16 00:34 HPI/ROS: HPI The patient presents with 4 days of left-sided testicular pain and swelling which has been mild though getting progressively worse. His pain is exacerbated with movement. He does not have any dysuria. He recently went on a 1 hour by cried and wonders if this exacerbated his symptoms. He does not have any trauma. He has no new sexual partners.. REVIEW OF SYSTEMS Constitutional: No fever, no chills. Eyes: No discharge. ENT: No sore throat. Cardiovascular: No chest pain, no palpitations. Respiratory: No cough, no shortness of breath. Gastrointestinal: No abdominal pain, no vomiting. Genitourinary: No hematuria. PMHx: Ulcerative colitis, on Imuran and prednisone Soc Hx: Recently relocated here from [place] PHYSICAL General Appearance: Alert, no distress Eyes: Pupils equal and round no pallor or injection ENT, Mouth: Mucous membranes moist Respiratory: Breathing comfortably Neurological: A&O, moves all extremities Skin: Warm and dry, no rashes Musculoskeletal: Neck is supple Extremities: symmetrical, full range of motion Psychiatric: Patient is oriented X 3, there is no agitation Source: Patient Exam Limitations: No limitations - Personal History Current Tetanus Diphtheria and Acellular Pertussis (TDAP): Yes - Medical/Surgical History Hx Asthma: No Hx Chronic Respiratory Disease: No Hx Diabetes: No Hx Cardiac Disease: No Hx Renal Disease: No Hx Cirrhosis: No Hx Alcoholism: No Hx HIV/AIDS: No Hx Splenectomy or Spleen Trauma: No Other PMH: ulcerative colitis - Social History Smoking Status: Never smoked Constitutional: Initial Vital Signs Temperature (C) 37.1 C 10/05/16 00:12 Heart Rate 91 10/05/16 00:12 Respiratory Rate 16 10/05/16 00:12 Blood Pressure 153/98 H 10/05/16 00:12 O2 Sat (%) 93 10/05/16 00:12 O2 Delivery Mode Room Air Allergies/Adverse Reactions: No Known Allergies Allergy (Unverified 08/24/16 11:39) Home Medications: Medication Instructions Recorded Cholecalciferol Vit D3 [Vitamin D3 50,000 unit PO MO@09 08/24/16 (*)] Remicade Inj 100 mg (*) 0 mg IV Q30D 08/24/16 azaTHIOprine [Imuran 50 mg (*)] 100 mg PO DAILY #30 tab 08/31/16 predniSONE 30 mg PO BIDMEAL #180 tab 08/31/16 traZODone [traZODONE 50MG (*)] 50 mg PO HS PRN #30 tab 08/31/16 levOFLOXACIN [levAQUIN (*)] 500 mg PO DAILY #10 tab 10/05/16 Medical Decision Making - Diagnostics Imaging Results: Testicular ultrasound demonstrates left-sided epididymitis with bilateral hydroceles Imaging: Discussed imaging studies w/ unemployment claims adjudicator Radiologist Differential Diagnosis: This is a 35-year-old man with ulcerative colitis on immunosuppressants with 4 day history of left-sided testicular pain and swelling. Differential diagnosis includes testicular torsion, epididymitis, orchitis. In the emergency room, ultrasound is obtained showing epididymitis on the left. UA show signs of infection. Given that the patient has no new sexual partners , I feel chlamydia or gonorrhea as the cause is unlikely. I feel this is likely more bacterial epididymitis. I will start him on Levaquin for this. Urine culture has been sent. I have given him follow-up with Urology and for the outpatient medicine MD as he does not have a local primary care doctor. - Data Points Laboratory Results: 10/05/16 02:05 Urine Color YELLOW Urine Appearance CLEAR Urine pH 5.0 (5.0-7.5) Ur Specific [place] 1.026 (1.002-1.030) Urine Protein NEGATIVE (NEGATIVE) Urine Ketones NEGATIVE (NEGATIVE) Urine Blood NEGATIVE (NEGATIVE) Urine Nitrate NEGATIVE (NEGATIVE) Urine Bilirubin NEGATIVE (NEGATIVE) Urine Urobilinogen NEGATIVE EU EU (0.2-1.0) Ur Leukocyte Esterase TRACE H (NEGATIVE) Urine RBC 10-15 /hpf H /hpf (0-3) Urine WBC 5-10 /hpf H /hpf (0-3) Ur Epithelial Cells NONE SEEN /lpf /lpf (NONE-1+) Urine Glucose NEGATIVE (NEGATIVE) Medications Given: Discontinued Medications Levofloxacin (Levaquin) 500 mg PO EDNOW ONE PRN Reason: Protocol Stop: 10/05/16 02:50 Last Admin: 10/05/16 02:59 Dose: 500 mg Departure - Departure Disposition: Home, Routine, Self-Care Clinical Impression: Epididymitis Condition: Good Instructions: Epididymitis (ED) Additional Instructions: You can use acetaminophen 650 mg every 6 hours as needed for pain. I have given you a prescription for Levaquin antibiotic. This can very rarely causes injuries 2 year tendons, which connect the bones to the muscles. Because of this, avoid any strenuous exercise well your taking the antibiotic. Referrals: Madai Richards MD [Medical Doctor] - As per Instructions Taylor Giles DO [Doctor of Osteopathy] - As per Instructions Prescriptions: levOFLOXACIN [levAQUIN (*)] 500 mg PO DAILY #10 tab
[2016-10-05 03:11] VITALS: BP 139/89; PULSE 75; TEMP 98.6; O2SAT 97
== END 2016-10-05 03:11 | disposition home or self-care (01) ==
DX: N45.1 Epididymitis (principal)